=== PATIENT | male | born 1985 ===

== ENCOUNTER 2018-11-19 20:59 | Emergency (ER) | payer OTHER ==
[2018-11-19 21:11] VITALS: BP 114/66; PULSE 82; RESP 18; TEMP 98.5; O2SAT 98
--- NOTE | 2018-11-19 21:25 | ED PDOC ---
HPI: Psych/Substance Abuse Time Seen by Provider: 11/19/18 21:13 Chief Complaint (Nursing): Psychiatric Evaluation Chief Complaint (Provider): Psychiatric Evaluation History Per: Patient History/Exam Limitations: no limitations Current Symptoms Are (Timing): Still Present Additional Complaint(s): 32 year old male presents to the ED stating he is depressed and has been hearing voices from the devil telling him to go out and kill someone. Patient reports he has been using heroine with last use this morning. PMD: none provided Past Medical History Reviewed: Historical Data, Nursing Documentation, Vital Signs Vital Signs: Last Vital Signs Temp 98.5 F 11/19/18 21:09 Pulse 82 11/19/18 21:09 Resp 18 11/19/18 21:09 BP 114/66 11/19/18 21:09 Pulse Ox 98 11/19/18 21:09 - Medical History PMH: Hepatitis (C) - Surgical History Surgical History: No Surg Hx - Family History Family History: States: Unknown Family Hx - Allergies Allergies/Adverse Reactions: Allergies Allergy/AdvReac Type Severity Reaction Status Date / Time No Known Allergies Allergy Verified 11/19/18 21:09 Review of Systems ROS Statement: Except As Marked, All Systems Reviewed And Found Negative Psych: Positive for: Depression, Other (Auditory hallucination) Physical Exam - Reviewed Nursing Documentation Reviewed: Yes Vital Signs Reviewed: Yes - Physical Exam Appears: Positive for: No Acute Distress Head Exam: Positive for: ATRAUMATIC, NORMOCEPHALIC Skin: Positive for: Normal Color, Warm, Dry Eye Exam: Positive for: Normal appearance Neck: Positive for: Normal, Painless ROM Cardiovascular/Chest: Positive for: Regular Rate, Rhythm Respiratory: Positive for: Normal Breath Sounds. Negative for: Wheezing, Respiratory Distress Extremity: Positive for: Normal ROM, Other (track becerra on both arms, no drainage or erythema) Neurological/Psych: Positive for: Awake, Alert, Oriented - Laboratory Results Result Diagrams: 11/19/18 21:45 11/19/18 21:45 - ECG O2 Sat by Pulse Oximetry: 98 (RA) Pulse Ox Interpretation: Normal Medical Decision Making Medical Decision Making: Initial Impression: Hearing voices Initial Plan: --Psychiatric evaluation --ECG --Alcohol serum stat --CMP --Drug screen --CBC --Chest X-ray --Urinalysis Scribe Attestation: Documented by Hemal Briggs acting as a scribe for Temo Rivera MD. Provider Scribe Attestation: All medical record entries made by the Scribe were at my direction and personally dictated by me. I have reviewed the chart and agree that the record accurately reflects my personal performance of the history, physical exam, medical decision making, and the department course for this patient. I have also personally directed, reviewed, and agree with the discharge instructions and disposition. Disposition - Clinical Impression Clinical Impression: Depression - Patient ED Disposition Is Patient to be Admitted: Transfer of Care - Disposition Disposition: Transfer of Care Disposition Time: 11:55 Condition: FAIR Forms: [employer] (Turkish) Patient Signed Over To: João May (pending psych eval)
[2018-11-19 22:00] LABS: BASO % 0.4 % (0.0-2.0); EOS # 0.3 K/uL (0.0-0.7); EOS % 4.1 % (0.0-4.0); HEMOGLOBIN 14.3 g/dL (12.0-18.0); LYMPH # 2.1 K/uL (1.0-4.3); LYMPH % 26.1 % (20.0-40.0); MEAN CELL VOLUME 91.2 fl (80.0-94.0); MEAN CORPUSCULAR HEMOGLOBIN 30.8 pg (27.0-31.0); MEAN CORPUSCULAR HGB CONC 33.8 g/dL (33.0-37.0); MEAN PLATELET VOLUME 8.5 fl (7.2-11.7); MONO # 0.7 K/uL (0.0-0.8); MONO % 8.6 % (0.0-10.0); NEUT # 4.9 K/uL (1.8-7.0); NEUT % 60.8 % (50.0-75.0); NRBC % 0.2 % (0.0-0.0); RBC 4.65 Mil/uL (4.40-5.90); RED CELL DISTRIBUTION WIDTH 13.6 % (11.5-14.5)
[2018-11-19 22:27] LABS: ALB/GLOB RATIO 1.3 (1.0-2.1); ALBUMIN 4.4 g/dL (3.5-5.0); ALT/SGPT 31 U/L (21-72); AST/SGOT 31 U/L (17-59); BLOOD UREA NITROGEN 12 mg/dl (9-20); CALCIUM 9.4 mg/dL (8.4-10.2); GFR NON-AFRICAN AMERICAN > 60
--- NOTE | 2018-11-19 23:57 | ED PDOC ---
- Laboratory Results Result Diagrams: 11/19/18 21:45 11/19/18 21:45 Lab Results: Total Bilirubin 0.4 mg/dl (0.2-1.3) 11/19/18 21:45 AST 31 U/L (17-59) 11/19/18 21:45 ALT 31 U/L (21-72) 11/19/18 21:45 Alkaline Phosphatase 94 U/L (38-126) 11/19/18 21:45 Total Protein 7.9 G/DL (6.3-8.2) 11/19/18 21:45 Albumin 4.4 g/dL (3.5-5.0) 11/19/18 21:45 Globulin 3.4 gm/dL (2.2-3.9) 11/19/18 21:45 Albumin/Globulin Ratio 1.3 (1.0-2.1) 11/19/18 21:45 - ECG O2 Sat by Pulse Oximetry: 98 (RA) Pulse Ox Interpretation: Normal Medical Decision Making Medical Decision Making: Time: 0000 --Patient signed out to this provider by Dr. Rivera, pending labs, crisis evaluation, and sobriety. labs reviewed- benign pt still unable to give urine pt awake and alert, stable gait Time: 0155 --Patient cleared by Crisis, under Dr. Cole. Diagnosis opioid abuse. Patient given detox referral. Scribe Attestation: Documented by Stormy Briggs, acting as a scribe for João May MD. Provider Scribe Attestation: All medical record entries made by the Scribe were at my direction and personally dictated by me. I have reviewed the chart and agree that the record accurately reflects my personal performance of the history, physical exam, medical decision making, and the department course for this patient. I have also personally directed, reviewed, and agree with the discharge instructions and disposition. Disposition Counseled Patient/Family Regarding: Diagnosis, Need For Followup - Clinical Impression Clinical Impression: Opioid abuse - POA Present On Arrival: None - Disposition Disposition: Routine/Home Disposition Time: 01:55 Condition: IMPROVED Additional Instructions: follow up with detox return to the ED with any worsening or concerning symptoms Instructions: Opioid Use Disorder Forms: [employer] ([place])
--- NOTE | 2018-11-20 08:24 | RAD ---
Date of service: 11/19/2018 HISTORY: cough COMPARISON: No prior. FINDINGS: LUNGS: No infiltrates bilaterally. PLEURA: No significant pleural effusion identified, no pneumothorax apparent. CARDIOVASCULAR: No aortic atherosclerotic calcification present. Normal cardiac size. No pulmonary vascular congestion. OSSEOUS STRUCTURES: Deformity of the posterior portion left 5th rib is appreciated from old healed fracture. VISUALIZED UPPER ABDOMEN: Normal. OTHER FINDINGS: None. IMPRESSION: No acute cardiopulmonary disease appreciated.
--- NOTE | 2018-11-20 18:48 | CARD ---
APPROVED REPORT Date of service: 11/19/2018 EKG Measurement Heart [id number] <Conclusion> Normal sinus rhythm Normal ECG
== END 2018-11-20 02:40 | disposition home or self-care (01) ==
LOC: H.ER 20:59
DX: F11.10 Opioid abuse, uncomplicated (principal); F32.9 Major depressive disorder, single episode, unspecified; B18.2 Chronic viral hepatitis C